=== PATIENT | female | born 1975 | race Caucasian/White ===

== ENCOUNTER 2019-12-09 07:53 | Emergency (ER) | payer MEDICAID, OTHER ==
[~2019-12-09] VITALS: Ht 170.2 cm; Wt 52.2 kg
[2019-12-09 08:23] VITALS: BP 120/89
--- NOTE | 2019-12-09 08:30 | Emergency Room Report ---
History of Present Illness General Chief Complaint: General Complaint Source: Patient Present Illness HPI Patient presents emergency department today complaining of abdominal discomfort. Patient states that around November 19 she has some sore throat and was treated with some antibiotic. Since then she has had abdominal discomfort intermittently associated multiple episodes of diarrhea and runny stool. She denies any blood. Denies any fever chest pain shortness of breath. States that she has had some weight loss. Decreased appetite. States that she has dry mouth all the time. She continues have a little bit of sore throat which seems to be worse in the mornings. She states that it feels very dry. No other complaints are noted. Symptoms noted to be moderate. My no modifying shortcut. Patient states that she has a COVID test that she took about a day or so ago and is pending the results. No fever no other complaints noted. 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 COVID-19 Screening: PUI COVID-19 COVID-19 Testing Source: PENDING Patient History Past Medical History: none Past Surgical History: appy Pertinent Family History: none Social History: Denies: smoking, alcohol use, drug use Last Menstrual Period: 12/02/19 Reviewed Nursing Documentation: PMH: Agreed; PSxH: Agreed Nursing Documentation-PMH Past Medical History: No Stated History Review of Systems All Other Systems: negative except mentioned in HPI Physical Exam Vital Signs Date Time Temp Pulse Resp B/P (MAP) Pulse Ox O2 Delivery O2 Flow Rate FiO2 12/09/19 08:01 98.8 81 14 120/89 (99) 99 Room Air Sp02 EP Interpretation: reviewed, normal General Appearance: normal inspection, well appearing, no apparent distress, alert Head: atraumatic Eyes: bilateral eye normal inspection ENT: normal ENT inspection, hearing grossly normal, normal voice Neck: normal inspection, full range of motion, supple, no bony tend Respiratory: normal inspection, lungs clear, normal breath sounds, no respiratory distress, no retraction, no wheezing Cardiovascular #1: regular rate, rhythm, no edema Gastrointestinal: normal inspection, normal bowel sounds, soft, no guarding, no hernia, other - Mild tenderness epigastric and suprapubic region. No rebound or guarding noted. Genitourinary: no CVA tenderness Musculoskeletal: normal inspection, back normal, normal range of motion Neurologic: alert, responsive, speech normal, normal inspection Psychiatric: normal inspection, judgement/insight normal, mood/affect normal Skin: no rash Medical Decision Making Diagnostic Impression: Primary Impression: Dehydration Additional Impressions: Diarrhea Hypokalemia ER Course Patient presents emergency department today complaining of abdominal pain diarrhea. Differential diagnosis include acute electrolyte abnormality, liver disorder, cholecystitis, gastroenteritis, adverse reaction to medications, dehydration just name a few. Given the severity of the patient's presentation I felt this is a highly complex patient. This patient required extensive workup. Patient's laboratory work-up shows a mild hypokalemia with ketones in the urine consistent with dehydration. Bilirubin was also slightly elevated. Because of bilirubin elevation and abdominal discomfort ultrasound was performed of patient 's abdomen pelvis. Ultrasound was noted to be negative. Given the patient had negative work-up here I feel the patient be discharged home. Patient was given 2 doses of normal saline fluid bolus and felt much better. Patient was also given 1 dose of Zofran. Patient is given prescription for Zofran. Laboratory results were reviewed with patient. Patient was advised to have outpatient follow-up. Patient is advised to follow up with primary doctor in 2-3 days and return the emergency room for any worsening symptoms and as needed. Labs Test 12/09/19 08:20 12/09/19 08:30 Urine Color Yellow Urine Appearance Clear Urine pH 6 (4.5-8.0) Urine Specific [place] 1.020 (1.005-1.035) Urine Protein 1+ (NEGATIVE) Urine Glucose (UA) Negative (NEGATIVE) Urine Ketones 4+ (NEGATIVE) Urine Blood 1+ (NEGATIVE) Urine Nitrite Negative (NEGATIVE) Urine Bilirubin Negative (NEGATIVE) Urine Urobilinogen Normal MG/DL (0.0-1.0) Urine Leukocyte Esterase Negative (NEGATIVE) Urine RBC 0-2 /HPF (0 - 2) Urine WBC 0-2 /HPF (0 - 2) Urine Squamous Epithelial Cells Few /LPF (NONE/OCC) Urine Transitional Epithelial Cells Moderate /LPF (NONE) Urine Bacteria Few /HPF (NONE) Urine HCG, Qualitative Negative (NEGATIVE) White Blood Count 5.1 K/UL (4.8-10.8) Red Blood Count 5.02 M/UL (4.20-5.40) Hemoglobin 14.7 G/DL (12.0-16.0) Hematocrit 44.9 % (37.0-47.0) Mean Corpuscular Volume 89 FL (80-99) Mean Corpuscular Hemoglobin 29.2 PG (27.0-31.0) Mean Corpuscular Hemoglobin Concent 32.7 G/DL (32.0-36.0) Red Cell Distribution Width 11.7 % (11.6-14.8) Platelet Count 201 K/UL (150-450) Mean Platelet Volume 8.1 FL (6.5-10.1) Neutrophils (%) (Auto) 67.0 % (45.0-75.0) Lymphocytes (%) (Auto) 22.7 % (20.0-45.0) Monocytes (%) (Auto) 8.7 % (1.0-10.0) Eosinophils (%) (Auto) 0.7 % (0.0-3.0) Basophils (%) (Auto) 0.9 % (0.0-2.0) Sodium Level 139 MMOL/L (136-145) Potassium Level 3.4 MMOL/L (3.5-5.1) Chloride Level 102 MMOL/L (98-107) Carbon Dioxide Level 24 MMOL/L (21-32) Anion Gap 13 mmol/L (5-15) Blood Urea Nitrogen 11 mg/dL (7-18) Creatinine 0.8 MG/DL (0.55-1.30) Estimat Glomerular Filtration Rate > 60 mL/min (>60) Glucose Level 110 MG/DL (74-106) Calcium Level 8.7 MG/DL (8.5-10.1) Total Bilirubin 1.4 MG/DL (0.2-1.0) Direct Bilirubin 0.3 MG/DL (0.0-0.3) Aspartate Amino Transf (AST/SGOT) 16 U/L (15-37) Alanine Aminotransferase (ALT/SGPT) 20 U/L (12-78) Alkaline Phosphatase 47 U/L (46-116) Total Protein 7.4 G/DL (6.4-8.2) Albumin 3.9 G/DL (3.4-5.0) Globulin 3.5 g/dL Albumin/Globulin Ratio 1.1 (1.0-2.7) Lipase 92 U/L (73-393) Last Vital Signs Date Time Temp Pulse Resp B/P (MAP) Pulse Ox O2 Delivery O2 Flow Rate FiO2 12/09/19 08:23 98.8 78 14 120/89 99 Room Air Status: improved Disposition: HOME, SELF-CARE Condition: Stable Scripts Ondansetron (Zofran) 4 Mg Tablet 4 MG ORAL Q6H PRN for Nausea & Vomiting, #15 TAB 0 Refills Prov: Tariq Gastelum MD 12/09/19 Tariq Gastelum MD Dec 09, 2019 08:30
[2019-12-09 09:02] LABS: BASOPHILS % (AUTO) 0.9 % (0.0-2.0); EOSINOPHILS % (AUTO) 0.7 % (0.0-3.0); HEMATOCRIT 44.9 % (37.0-47.0); HEMOGLOBIN 14.7 G/DL (12.0-16.0); LYMPHOCYTES % (AUTO) 22.7 % (20.0-45.0); MEAN CORPUSCULAR VOLUME 89 FL (80-99); MONOCYTES % (AUTO) 8.7 % (1.0-10.0); PLATELET COUNT 201 K/UL (150-450); RED BLOOD COUNT 5.02 M/UL (4.20-5.40); RED CELL DISTRIBUTION WIDTH 11.7 % (11.6-14.8); WHITE BLOOD COUNT 5.1 K/UL (4.8-10.8)
[2019-12-09 09:06] LABS: ANION GAP 13 mmol/L (5-15); BLOOD UREA NITROGEN 11 mg/dL (7-18); CALCIUM 8.7 MG/DL (8.5-10.1); CARBON DIOXIDE 24 MMOL/L (21-32); CHLORIDE 102 MMOL/L (98-107); CREATININE 0.8 MG/DL (0.55-1.30); POTASSIUM 3.4 MMOL/L (3.5-5.1); SODIUM 139 MMOL/L (136-145)
[2019-12-09 09:11] LABS: ALANINE AMINOTRANSFERASE 20 U/L (12-78); ALBUMIN 3.9 G/DL (3.4-5.0); ALBUMIN/GLOBULIN RATIO 1.1 (1.0-2.7); ALKALINE PHOSPHATASE 47 U/L (46-116); ASPARTATE AMINO TRANSFERASE 16 U/L (15-37); BILIRUBIN,TOTAL 1.4 MG/DL (0.2-1.0)
[2019-12-09 09:13] LABS: APPEARANCE,URINE CLEAR; BILIRUBIN, URINE NEGATIVE (NEGATIVE); GLUCOSE, URINE (UA) NEGATIVE (NEGATIVE); KETONES,URINE 4+ (NEGATIVE); LEUKOCYTE ESTERASE ,URINE NEGATIVE (NEGATIVE); NITRITE,URINE NEGATIVE (NEGATIVE); PH,URINE 6 (4.5-8.0); PROTEIN,URINE 1+ (NEGATIVE); UROBILINOGEN,URINE NORMAL MG/DL (0.0-1.0)
--- NOTE | 2019-12-09 09:20 | NUR ---
ED Nurse Note:pt. came from home with c/o nausea and sore throat for several days, no fever or SOB reported
[2019-12-09 09:21] LABS: BILIRUBIN,DIRECT 0.3 MG/DL (0.0-0.3)
[2019-12-09 09:23] LABS: COLOR,URINE YELLOW
[2019-12-09] MEDS ORDERED: ZOFRAN4 MG ORAL (10:35)
--- NOTE | 2019-12-09 10:36 | Diagnostic Imaging Report ---
EXAM: ULTRASOUND US ABD Complete CLINICAL HISTORY: Abdominal pain. COMPARISON: None TECHNIQUE: Ultrasound examination of the abdomen includes grayscale images, and color and spectral doppler analysis. FINDINGS: The liver and spleen are homogeneous. The gallbladder is without sludge or stone. Common bile duct measures 3 mm. The pancreas is unremarkable to the extent visualized. The kidneys are normal in size, shape and axis. Aorta and cava are within normal limits. IMPRESSION: UNREMARKABLE ULTRASOUND OF THE ABDOMEN.
[2019-12-09 10:40] VITALS: BP 123/86
--- NOTE | 2019-12-09 10:45 | NUR ---
ER DISCHARGE NOTE: Patient is cleared to be discharged per ERMD, pt is aox4, on room air, with stable vital signs. pt was given dc and prescription instructions, pt was able to verbalize understanding, pt id band and iv site removed without complications. pt is able to ambulate with steady gait. pt took all belongings.
[2019-12-09 10:46] VITALS: BP 120/89
== END 2019-12-09 11:00 | disposition home or self-care (01) ==
LOC: EMR 08:30
DX: E86.0 Dehydration (principal); R19.7 Diarrhea, unspecified; E87.6 Hypokalemia; Z90.89 Acquired absence of other organs
CPT/HCPCS: 36415; 76700; 80053; 81003; 81025; 82248; 83690; 85025; 96361; 96374; J2405; J7030; Z7502; 99284

== ENCOUNTER → 2020-01-21 | Emergency (ER) | payer MEDICAID ==
[~2020-01-21] MED LIST: Fluconazole 150mg tab ORAL ONE; ZOFRAN4 MG ORAL
--- NOTE | 2020-01-21 19:10 | NUR ---
ED Nurse Note: Report received from MYRA Jefferson. Patient is resting in bed, NAD. VSS. Patient denies pain at this time. Will continue to monitor patient.
[2020-01-21 19:55] VITALS: BP 123/76
--- NOTE | 2020-01-21 20:44 | Emergency Room Report ---
History of Present Illness General Chief Complaint: Epigastric pain Source: Patient Present Illness HPI 44-year-old female, no past medical history no surgical history has been having epigastric burning pain ongoing for the past few months, no shortness of breath no dyspnea on exertion no diaphoresis, she states it radiates up to retrosternally, severity is mild, intermittent no known aggravating relieving factors she also endorses dry mouth, Allergies: Coded Allergies: No Known Allergies (Unverified , 06/01/15) COVID-19 Screening Contact w/high risk pt: No Experienced COVID-19 symptoms?: Yes Patient History Past Medical History: see triage record Reviewed Nursing Documentation: PMH: Agreed; PSxH: Agreed Review of Systems All Other Systems: negative except mentioned in HPI Physical Exam Vital Signs Date Time Temp Pulse Resp B/P (MAP) Pulse Ox O2 Delivery O2 Flow Rate FiO2 01/21/20 19:55 98.8 61 12 123/76 100 Room Air Sp02 EP Interpretation: reviewed, normal General Appearance: well appearing, no apparent distress, alert Head: normocephalic, atraumatic Eyes: bilateral eye PERRL, bilateral eye EOMI ENT: uvula midline, moist mucus membranes Neck: supple, thyroid normal, supple/symm/no masses Respiratory: lungs clear, no respiratory distress, no retraction, no accessory muscle use Cardiovascular #1: normal peripheral pulses, regular rate, rhythm, no edema, no gallop, no murmur Gastrointestinal: non tender, soft, no guarding, no rebound Musculoskeletal: normal inspection Neurologic: alert, oriented x3 Psychiatric: mood/affect normal Skin: no rash, warm/dry Medical Decision Making Diagnostic Impression: Primary Impression: Chest pain Qualified Codes: R07.9 - Chest pain, unspecified ER Course 44-year-old female presents with vague epigastric pain differential diagnosis includes pancreatitis, gastritis, esophagitis. ACS work-up negative troponin negative, EKG negative, chest x-ray negative Patient given 1 dose of fluconazole for possible esophagitis. Patient counseled to follow-up with rheumatology given her constellation of dry mouth vague complaints of esophageal pain, epigastric pain and generalized body pain Laboratory Tests Test 01/21/20 18:40 01/21/20 19:45 White Blood Count 6.5 K/UL (4.8-10.8) Red Blood Count 5.00 M/UL (4.20-5.40) Hemoglobin 14.8 G/DL (12.0-16.0) Hematocrit 43.7 % (37.0-47.0) Mean Corpuscular Volume 87 FL (80-99) Mean Corpuscular Hemoglobin 29.6 PG (27.0-31.0) Mean Corpuscular Hemoglobin Concent 33.8 G/DL (32.0-36.0) Red Cell Distribution Width 11.8 % (11.6-14.8) Platelet Count 209 K/UL (150-450) Mean Platelet Volume 7.9 FL (6.5-10.1) Neutrophils (%) (Auto) 73.7 % (45.0-75.0) Lymphocytes (%) (Auto) 16.9 % (20.0-45.0) L Monocytes (%) (Auto) 8.8 % (1.0-10.0) Eosinophils (%) (Auto) 0.2 % (0.0-3.0) Basophils (%) (Auto) 0.5 % (0.0-2.0) Sodium Level 140 MMOL/L (136-145) Potassium Level 3.8 MMOL/L (3.5-5.1) Chloride Level 103 MMOL/L (98-107) Carbon Dioxide Level 26 MMOL/L (21-32) Anion Gap 11 mmol/L (5-15) Blood Urea Nitrogen 9 mg/dL (7-18) Creatinine 0.7 MG/DL (0.55-1.30) Estimated Glomerular Filtration Rate > 60 mL/min (>60) Glucose Level 117 MG/DL (74-106) H Calcium Level 9.2 MG/DL (8.5-10.1) Total Bilirubin Pending Aspartate Amino Transferase (AST) Pending Alanine Aminotransferase (ALT) Pending Alkaline Phosphatase Pending Troponin I 0.000 ng/mL (0.000-0.056) Total Protein Pending Albumin Pending Globulin Pending Lipase 100 U/L (73-393) Urine HCG, Qualitative Negative (NEGATIVE) EKG Diagnostic Results EKG Time: 17:34 EP Interpretation: NSR, rate 67, QTc 407, no acute ST elevations, normal axis Rhythm Strip Diag. Results Rhythm Strip Time: 20:43 EP Interpretation: yes Rate: 61 Rhythm: NSR, no PVC's, no ectopy Chest X-Ray Diagnostic Results Chest X-Ray Diagnostic Results : Chest X-Ray Ordered: Yes # of Views/Limited/Complete: 1 View Indication: Chest Pain EP Interpretation: Yes Interpretation: no consolidation, no effusion, no pneumothorax, no acute cardiopulmonary disease Impression: No acute disease Electronically Signed by: Nigel Bowling MD Last Vital Signs Date Time Temp Pulse Resp B/P (MAP) Pulse Ox O2 Delivery O2 Flow Rate FiO2 01/21/20 19:55 98.8 61 12 123/76 100 Room Air Disposition: HOME, SELF-CARE Condition: Stable Referrals: [facility],REFERRING (PCP) Patient Instructions: Gastroesophageal Reflux Disease, Adult, [id number], Nonspecific Chest Pain, [id number] Additional Instructions: PLEASE FOLLOW-UP WITH RHEUMATOLOGY The patient was provided with discharge instructions, notified to follow-up with a primary care doctor and or specialist in the next 24-48 hours, and to return to the ED if they have worsening of their symptoms. Please note that this report is being documented using [employer] technology. This can lead to erroneous entry secondary to incorrect interpretation by the dictating instrument. Nigel Bowling MD Jan 21, 2020 20:44
[2020-01-21 21:08] LABS: BASOPHILS % (AUTO) 0.5 % (0.0-2.0); EOSINOPHILS % (AUTO) 0.2 % (0.0-3.0); HEMATOCRIT 43.7 % (37.0-47.0); HEMOGLOBIN 14.8 G/DL (12.0-16.0); LYMPHOCYTES % (AUTO) 16.9 % (20.0-45.0); MEAN CORPUSCULAR VOLUME 87 FL (80-99); MONOCYTES % (AUTO) 8.8 % (1.0-10.0); NEUTROPHILS % (AUTO) 73.7 % (45.0-75.0); PLATELET COUNT 209 K/UL (150-450); RED CELL DISTRIBUTION WIDTH 11.8 % (11.6-14.8); WHITE BLOOD COUNT 6.5 K/UL (4.8-10.8)
[2020-01-21 21:36] LABS: ANION GAP 11 mmol/L (5-15); BLOOD UREA NITROGEN 9 mg/dL (7-18); CALCIUM 9.2 MG/DL (8.5-10.1); CARBON DIOXIDE 26 MMOL/L (21-32); CHLORIDE 103 MMOL/L (98-107); CREATININE 0.7 MG/DL (0.55-1.30); POTASSIUM 3.8 MMOL/L (3.5-5.1); SODIUM 140 MMOL/L (136-145)
[2020-01-21 21:45] VITALS: BP 122/85
[2020-01-21 21:57] LABS: BILIRUBIN,TOTAL 1.6 MG/DL (0.2-1.0)
[2020-01-21 21:58] LABS: ALANINE AMINOTRANSFERASE 11 U/L (12-78); ALBUMIN 4.2 G/DL (3.4-5.0); ALKALINE PHOSPHATASE 57 U/L (46-116); ASPARTATE AMINO TRANSFERASE 7 U/L (15-37)
[2020-01-21 22:00] LABS: BILIRUBIN,DIRECT 0.3 MG/DL (0.0-0.3)
--- NOTE | 2020-01-22 16:45 | Diagnostic Imaging Report ---
Indication: Chest pain Technique: One view of the chest Comparison: none Findings: Lungs and pleural spaces are clear. Heart size is normal. No significant change Impression: No acute process
== END | disposition home or self-care (01) ==
LOC: EMR 19:42
DX: R07.9 Chest pain, unspecified (principal)
CPT/HCPCS: 36415; 71045; 80053; 81025; 82248; 83690; 84484; 85025; 93005; Z7502; 99283